=== PATIENT | male | born 1980 | race Two or more races ===

== ENCOUNTER 2023-05-29 12:00 | Emergency (ER) | payer OTHER ==
[~2023-05-29] VITALS: Ht 167.6 cm; Wt 108.2 kg
[2023-05-29 12:11] VITALS: TEMP 98.6
[2023-05-29 12:16] VITALS: BP 184/126; PULSE 99; RESP 18; O2SAT 98
[2023-05-29] MEDS: cloNIDine HCL 0.1 MG TAB PO ONE (12:28)
[2023-05-29] MEDS ORDERED: HYDROcodone-ACET 5/325MG TAB PO ONE (14:30)
[2023-05-29] MEDS: HYDROcodone-ACET 10/325MG TAB PO ONE (14:31)
[2023-05-29] MEDS: LIDOCAINE 1% HCL (LOCAL ANESTH.) INJ 20ML MDV ID ONE (15:11)
[2023-05-29] MEDS: BACITRACIN TOP OINT 1 UD PKG TOP ONE (15:34)
[2023-05-29] MEDS ORDERED: IBUP-1456 PO (15:37)
[2023-05-29] MEDS ORDERED: AMOX875T4 PO (15:37)
== END 2023-05-29 15:55 | disposition home or self-care (01) ==
LOC: ER 12:00
DX: S62.522A Displaced fracture of distal phalanx of left thumb, initial encounter for closed fracture (principal); S61.012A Laceration without foreign body of left thumb without damage to nail, initial encounter; S61.211A Laceration without foreign body of left index finger without damage to nail, initial encounter; W23.0XXA Caught, crushed, jammed, or pinched between moving objects, initial encounter; Y93.89 Activity, other specified; Y92.89 Other specified places as the place of occurrence of the external cause; Y99.8 Other external cause status
CPT/HCPCS: 12001; 73130; 99284; J2001